=== PATIENT | female | born 1980 | race Caucasian/White ===

== ENCOUNTER 2016-07-31 09:22 | Emergency (ER) | payer OTHER | END 2016-07-31 10:50 | disposition home or self-care (01) | LOC: ER 09:22 | DX: R51 Headache (principal); M54.2 Cervicalgia; G89.29 Other chronic pain; M54.5 Low back pain; I10 Essential (primary) hypertension; M06.9 Rheumatoid arthritis, unspecified; F32.9 Major depressive disorder, single episode, unspecified; Z90.710 Acquired absence of both cervix and uterus; F17.210 Nicotine dependence, cigarettes, uncomplicated; L93.0 Discoid lupus erythematosus; Z79.899 Other long term (current) drug therapy | CPT/HCPCS: 72040; 72100; 99283 ==

== ENCOUNTER 2016-09-01 07:41 | Emergency (ER) | payer OTHER | END 2016-09-01 08:15 | disposition home or self-care (01) | LOC: ER 07:41 | DX: G89.29 Other chronic pain (principal); I10 Essential (primary) hypertension; F41.9 Anxiety disorder, unspecified; F17.210 Nicotine dependence, cigarettes, uncomplicated; Z79.891 Long term (current) use of opiate analgesic; Z79.899 Other long term (current) drug therapy | CPT/HCPCS: 93005; 99283-25 ==

== ENCOUNTER 2016-09-02 16:37 | Emergency (ER) | payer OTHER | END 2016-09-02 18:58 | disposition home or self-care (01) | LOC: ER 16:37 | DX: R52 Pain, unspecified (principal); I10 Essential (primary) hypertension; M06.9 Rheumatoid arthritis, unspecified; M79.7 Fibromyalgia; L93.0 Discoid lupus erythematosus; F17.210 Nicotine dependence, cigarettes, uncomplicated; Z79.899 Other long term (current) drug therapy; Z79.891 Long term (current) use of opiate analgesic | CPT/HCPCS: 96372; 99282-25 ==

== ENCOUNTER 2016-09-30 14:30 | Emergency (ER) | payer OTHER | END 2016-09-30 20:11 | disposition home or self-care (01) | LOC: ER 14:30 | DX: S30.0XXA Contusion of lower back and pelvis, initial encounter (principal); W18.2XXA Fall in (into) shower or empty bathtub, initial encounter; I10 Essential (primary) hypertension; M06.9 Rheumatoid arthritis, unspecified; M32.9 Systemic lupus erythematosus, unspecified; Z90.49 Acquired absence of other specified parts of digestive tract; Z90.710 Acquired absence of both cervix and uterus; F17.210 Nicotine dependence, cigarettes, uncomplicated; Z79.899 Other long term (current) drug therapy | CPT/HCPCS: 72100; 96372; 99283-25 ==

== ENCOUNTER 2017-01-01 09:57 | Emergency (ER) | payer OTHER | END 2017-01-01 10:41 | disposition home or self-care (01) | LOC: ER 09:57 | DX: S33.5XXA Sprain of ligaments of lumbar spine, initial encounter (principal); I10 Essential (primary) hypertension; G89.29 Other chronic pain; M54.5 Low back pain; W18.09XA Striking against other object with subsequent fall, initial encounter; Y92.009 Unspecified place in unspecified non-institutional (private) residence as the place of occurrence of the external cause; F17.210 Nicotine dependence, cigarettes, uncomplicated | CPT/HCPCS: 99282 ==